=== PATIENT | male | born 1965 | race Caucasian/White ===

== ENCOUNTER 2017-10-25 12:32 | Inpatient (IN) | payer MEDICAID ==
[~2017-10-25] VITALS: Ht 185.4 cm; Wt 66.2 kg
--- NOTE | 2017-10-25 12:35 | NUR ---
Patient BIBA to bed 2 at this time.
[2017-10-25 12:38] VITALS: BP 178/113
[2017-10-25] MEDS ORDERED: IBUPROFEN 800 MG TAB ONE (12:38)
[2017-10-25] MEDS ORDERED: ACETAMINOPHEN EXTRA STRENGTH 500 MG TAB ONE (12:38)
--- NOTE | 2017-10-25 12:38 | NUR ---
Pt pressents to ED with aloc. found on side of road in [facility]. 911 called by jeanie. EMS responded and found Pt with ALOC unable to determin cuase. Pt arival to ED with aloc. Can follow commands only. slurred speach. no c/o pain. Pt febrile and tachycardic. ER MD at bedside for evauluation. Continue to monitor.
[2017-10-25] MEDS ORDERED: ONDANSETRON 4 MG/2 ML VIAL IVP ONE (12:40)
[2017-10-25] MEDS ORDERED: DILTIAZEM 25 MG/5 ML VIAL IVP ONE (12:40)
[2017-10-25] MEDS ORDERED: NACL 0.9% 1,000 ML IV ONE (12:40)
[2017-10-25] MEDS ORDERED: ACETAMINOPHEN 650 MG SUPP RC ONE ×2 (12:40→12:42)
--- NOTE | 2017-10-25 13:13 | NUR ---
patient medicated. continue to monitor.denies discomfort. cxr at bedside
[2017-10-25 13:51] LABS: BASOPHILS # (AUTO) 0.2 K/uL (0.00-0.22); BASOPHILS % (AUTO) 4.7 % (0.0-2.0); EOSINOPHILS # (AUTO) 0.4 K/uL (0-0.4); EOSINOPHILS % (AUTO) 9.1 % (0.0-4.0); HEMATOCRIT 40.3 % (36-52); HEMOGLOBIN 13.4 g/dL (12.0-18.0); LYMPHOCYTES # (AUTO) 0.9 K/uL (2.0-11.5); LYMPHOCYTES % (AUTO) 20.7 % (20.5-51.1); MEAN CORPUSCULAR HEMOGLOBIN 30 pg (27-31); MEAN CORPUSCULAR HGB CONC 33 g/dL (33-37); MONOCYTES # (AUTO) 0.5 K/uL (0.8-1.0); MONOCYTES % (AUTO) 10.9 % (1.7-9.3); NEUTROPHILS # (AUTO) 2.3 K/uL (1.8-7.7); NEUTROPHILS % (AUTO) 54.6 % (42.2-75.2); PLATELET COUNT (AUTO) 129 K/uL (140-450); RED BLOOD CELL COUNT(AUTO) 4.43 MIL/uL (4.20-6.10); RED CELL DISTRIBUTION WIDTH 11.8 % (11.6-13.7); WHITE BLOOD COUNT (AUTO) 4.3 K/uL (4.8-10.8)
[2017-10-25 14:06] LABS: APPEARANCE,URINE CLEAR (CLEAR); BILIRUBIN,URINE NEGATIVE (NEGATIVE); BLOOD, URINE NEGATIVE (NEGATIVE); COLOR,URINE YELLOW (YELLOW); LEUKOCYTE ESTERASE ,URINE NEGATIVE (NEGATIVE); NITRITE, URINE NEGATIVE (NEGATIVE); PH,URINE 6.5 (5.0-9.0); UGLUCOSE NEGATIVE (NEGATIVE)
[2017-10-25 14:08] LABS: ALBUMIN 2.6 g/dL (3.4-5.0); ANION GAP 14.8 (8-16); CARBON DIOXIDE 23.6 mmol/L (21-32); CREATININE 1.2 mg/dL (0.7-1.3); POTASSIUM 3.4 mmol/L (3.5-5.1); TOTAL BILIRUBIN 0.3 mg/dL (0.0-1.0)
[2017-10-25 14:22] LABS: BARBITURATE, URINE NEG. ng/ml (NEG <=200); BENZODIAZEPINE, URINE NEG. ng/mL (NEG <=200); CANNABINOID, URINE POS. ng/mL (NEG <=50); COCAINE, URINE NEG. ng/mL (NEG <=300); OPIATE, URINE NEG. ng/mL (NEG <=2000); PHENCYCLIDINE SCREEN,URINE NEG. ng/mL (NEG <=25)
--- NOTE | 2017-10-25 14:40 | NUR ---
Care transfered to ICU bed #3. VSS upon gurney transport.
--- NOTE | 2017-10-25 14:44 | NUR ---
Critical lab Troponin I recieved. Reported to Dr. Toledo immediately. Verbal order for STAT EKG.
[2017-10-25 14:55] LABS: RBC,URINE 0-5 (RARE) /HPF (0-5); WBC,URINE 0-5 (RARE) /HPF (0-5)
[2017-10-25] MEDS ORDERED: NITROGLYCERIN 0.4 MG TAB SL PRN (15:10)
[2017-10-25] MEDS ORDERED: ACETAMINOPHEN 325 MG TAB PO PRN (15:10)
[2017-10-25] MEDS: DEXT 5% /NACL 0.9% 1,000 ML IV SCH (15:10)
[2017-10-25] MEDS ORDERED: MORPHINE SULFATE 2 MG/ML SYR IVP PRN ×2 (15:10)
[2017-10-25] MEDS ORDERED: LORazepam 1 MG TAB PO PRN (15:10)
[2017-10-25] MEDS ORDERED: ONDANSETRON 4 MG/2 ML VIAL IVP PRN (15:10)
[2017-10-25] MEDS ORDERED: ALUMINUM HYD/MAG/SIMETHICONE 30 ML UDC PO PRN (15:10)
[2017-10-25] MEDS ORDERED: HYDROcodone/APAP 5/325 MG 1 TAB TAB PO PRN (15:10)
[2017-10-25] MEDS ORDERED: ZOLPIDEM 5 MG TAB PO PRN (15:10)
[2017-10-25] MEDS ORDERED: LORazepam 2 MG/ML VIAL IVP PRN (15:10)
--- NOTE | 2017-10-25 16:28 | NUR ---
RECEIVED PATIENT FROM PRESS OFFICERADAMS FOR CONTINUITY OF CARE IN ICU. PATIENT IS LETHARGIC, ORIENTED TO PERSON, PLACE, TIME, AND DATE. HE IS ABLE TO FOLLOW SIMPLE COMMANDS AND MAKES NEEDS KNOWN. HE HAS ALLERGY TO ASPIRIN, REPORTS HAVING SYMPTOMS OF ASTHMA WHEN TAKES ASPIRIN. VS ARE IN STABLE CONDITION AT THIS TIME, HE IS ON NASAL CANNULA 3L, LUNG SOUNDS ARE CLEAR THROUGHOUT. SR ON AUTO [place] DRIVER, CAP REFILL IS LESS THAN 3 SECS. PATIENT HAS TWO PERIPHERAL IV SITES, LEFT FOREARM 20 GAUGE, ASYMPTOMATIC, INTACT, PATENT. AND RIGHT FOREARM 18 GAUGE, ASYMPTOMATIC, INTACT, PATENT. CALL LIGHT WITHIN REACH, NO SIGNS OF DISTRESS NOTED AT THIS TIME. WILL CONTINUE TO MONITOR CLOSELY.
[2017-10-25 18:00] VITALS: BP 141/82
--- NOTE | 2017-10-25 18:09 | NUR ---
CALLED DR.YOGESH EATON FOR CONSULT WITH PATIENT, HE IS AWARE AND STATES THAT HE WILL COME AND SEE PATIENT.
--- NOTE | 2017-10-25 19:03 | NUR ---
ENDORSED CONTINUITY OF CARE AT BEDSIDE TO TOOL COORDINATOR RNARNEL. PATIENT IS RESTING AT THIS TIME, NO SIGNS OF DISTRESS NOTED.
--- NOTE | 2017-10-25 19:20 | NUR ---
RECEIVED BEDSIDE REPORT FROM MORNING SHIFT NURSE. PT DROWSY, LETHARGIC, AROUSABLE TO VOICE, VERBALLY RESPONSIVE, ABLE TO MAKE NEEDS KNOWN. AAO X3. NO FEVER NOTED. SR ON THE MONITOR WITH ABNORMAL T WAVE. ON ROOM AIR WITH 99% O2 SAT. BILATERAL LUNG SOUND CLEAR. HYPOACTIVE ABDOMINAL SOUND FROM ALL 4 QUADS. PERIPHERAL LINE TO RIGHT FORE ARM G 18 AND LEFT FORE ARM G 20, ASYMPTOMATIC, INTACT AND PATENT NOTED. SKIN INTACT. BED IN LOW POSITION. CALL LIGHT WITHIN REACH. WILL CONTINUE TO MONITOR.
--- NOTE | 2017-10-25 19:55 | NUR ---
. Jose AND DR.PALIWAL Munguia AT HERE TO SEE THE PT. WILL FOLLOW THE ORDER.
[2017-10-25 20:00] VITALS: BP 160/115
[2017-10-25] MEDS ORDERED: CARVEDILOL 6.25 MG TAB ONE (20:46)
--- NOTE | 2017-10-25 21:20 | NUR ---
PAGED DR.PALIWAL Garcia BECAUSE PT'S BP 169/116 NOTED AND PT WANTS TO EAT FOOD. RECEIVED CALL BACK, DR ANGELITO Garcia ORDERED CARDIAC DIET AND CLONIDINE 0.1 MG PO PRN Q6HR IF SBP ABOVE 150.
[2017-10-25] MEDS ORDERED: CARVEDILOL 6.25 MG TAB PO SCH (21:30)
[2017-10-25] MEDS ORDERED: POTASSIUM CHLORIDE 10 MEQ TABER PO SCH (21:30)
--- NOTE | 2017-10-25 21:30 | NUR ---
ADMINISTERED SCHEDULED MEDICATIONS ORDERED, TOLERATED WELL. NO ACUTE DISTRESS NOTED. SR ON THE MONITOR. DENIES ANY PAIN AT THIS TIME. CALL LIGHT WITHIN REACH.
[2017-10-25] MEDS: ATORVASTATIN 20 MG TAB PO SCH (21:41)
[2017-10-25 21:43] LABS: CREATINE KINASE MB 4.8 ng/mL (0-3.6)
--- NOTE | 2017-10-25 21:55 | NUR ---
RECEIVED CRITICAL LAB TROPONIN 0.089, NOTIFIED TO DR.PALIWAL Munguia. NO NEW ORDER NOTED.
[2017-10-25 22:00] VITALS: BP 158/109
[2017-10-25] MEDS: LEVOFLOXACIN 500 MG/D5W PREMIX 100 ML IV SCH (22:20)
[2017-10-25] MEDS: cloNIDine 0.1 MG TAB PO PRN (22:21)
[2017-10-25] MEDS ORDERED: COMMUNICATION ORDER MC PRN (22:50)
[2017-10-25] MEDS ORDERED: VANCOMYCIN PER PHARMACY MC PRN (22:50)
--- NOTE | 2017-10-25 22:50 | NUR ---
AT HERE TO SEE THE PT. WILL FOLLOW THE ORDER.
--- NOTE | 2017-10-25 23:45 | NUR ---
PT REPORTED TO NURSE THAT HE IS HAVING HARD OF BREATHING AND HX OF ASTHMA, TAKING MEDICATION AT HOME. NOTIFIED TO DR. EATON AND RECEIVED ORDER. DUONEB 3ML Q4HR PRN IF SOB NOTED AND CARRIED OUT.
[2017-10-25] MEDS: ALBUTEROL SULFATE/IPRATROPIU 3 ML SOL IH PRN (23:59)
[2017-10-26] VITALS (9 sets, daily range): BP systolic 139–159; BP diastolic 88–106
[2017-10-26] MEDS ORDERED: VANCOMYCIN 1,000 MG in DEXTROSE 5% 250 ML IV SCH ×2
[2017-10-26] MEDS ORDERED: VANCOMYCIN 1,000 MG VIAL ONE (00:04)
--- NOTE | 2017-10-26 01:30 | NUR ---
PT IS WATCHING TV AT THIS TIME. NO ACUTE DISTRESS NOTED. DENIES ANY PAIN OR DISCOMFORT. SR WITH ABNORMAL T WAVE ON THE MONITOR. WILL CONTINUE TO MONITOR.
[2017-10-26] MEDS: DEXT 5% /NACL 0.9% 1,000 ML IV SCH ×3 (01:38→18:23)
--- NOTE | 2017-10-26 03:30 | NUR ---
PT IS AWAKE, VERBALLY RESPONSIVE. PT IS GETTING MORE ALERT AND ORIENTED. AAO X4. SR ON THE MONITOR. NO ACUTE DISTRESS NOTED. WILL CONTINUE TO MONITOR.
[2017-10-26] MEDS: cloNIDine 0.1 MG TAB PO PRN ×2 (04:35→14:07)
--- NOTE | 2017-10-26 04:35 | NUR ---
PT'S BP 154/112 NOTED. ADMINISTERED PRN CLONIDINE 0.1MG AT THIS TIME. NO ACUTE RESPIRATORY DISTRESS NOTED. WILL CONTINUE TO MONITOR.
--- NOTE | 2017-10-26 06:20 | NUR ---
PT AWAKE, WATCHING TV, AAO X4. NO ACUTE DISTRESS NOTED. SR ON THE MONITOR. DENIES ANY PAIN OR DISCOMFORT. CONTINUE TO MONITOR.
--- NOTE | 2017-10-26 07:10 | NUR ---
PT TRANSFERRED TO TELE ROOM 111B FROM ICU, BEDSIDE REPORT GIVEN TO DRU DUMONT DURING TRANSFER. NO ACUTE DISTRESS NOTED. Addendum: 10/26/17 at 0723 by Neto Rousseau RN WRONG ENTRY, PROVIDER MISTAKE.
[2017-10-26 07:13] LABS: BASOPHILS # (AUTO) 0.2 K/uL (0.00-0.22); BASOPHILS % (AUTO) 4.5 % (0.0-2.0); EOSINOPHILS # (AUTO) 0.5 K/uL (0-0.4); EOSINOPHILS % (AUTO) 13.1 % (0.0-4.0); HEMATOCRIT 37.9 % (36-52); LYMPHOCYTES # (AUTO) 0.9 K/uL (2.0-11.5); MEAN CORPUSCULAR HEMOGLOBIN 31 pg (27-31); MEAN CORPUSCULAR HGB CONC 34 g/dL (33-37); MEAN CORPUSCULAR VOLUME 89.9 fL (80-94); MONOCYTES # (AUTO) 0.4 K/uL (0.8-1.0); MONOCYTES % (AUTO) 10.7 % (1.7-9.3); NEUTROPHILS # (AUTO) 1.6 K/uL (1.8-7.7); NEUTROPHILS % (AUTO) 45.7 % (42.2-75.2); PLATELET COUNT (AUTO) 106 K/uL (140-450); RED BLOOD CELL COUNT(AUTO) 4.22 MIL/uL (4.20-6.10); RED CELL DISTRIBUTION WIDTH 11.7 % (11.6-13.7); WHITE BLOOD COUNT (AUTO) 3.6 K/uL (4.8-10.8)
--- NOTE | 2017-10-26 07:14 | NUR ---
RECEIVED BEDSIDE REPORT FROM TECHNICIAN CHEMICAL CLEANING RN, ARNEL, FOR CONTINUITY OF CARE. PATIENT IS AWAKE WATCHING TV, AA0X4, ABLE TO FOLLOW COMMANDS AND MAKE NEEDS KNOWN. SKIN IS INTACT, WARM AND DRY, HAS TWO PERIPHERAL IV SITES, LEFT FOREARM AND RIGHT FOREARM, BOTH ASYMPTOMATIC, PATENT, INTACT. PATIENT'S BP IS ELEVATED, DR. EATON AWARE, SR ON MONITOR, CAP REFILL LESS THAN 3 SECS. LUNG SOUNDS CLEAR, ON ROOM AIR. HE IS ON CARDIAC DIET, AWARE THAT BREAKFAST WILL COME AROUND 8, PROVIDED WITH ORAL CARE, HE IS ABLE TO DO ORAL CARE INDEPENDENTLY. CALL LIGHT WITHIN REACH, NO SIGNS OF DISTRESS NOTED AT THIS TIME. WILL MONITOR CLOSELY.
--- NOTE | 2017-10-26 07:15 | NUR ---
REPORT GIVEN TO MORNING NURSE FOR CONTINUITY OF CARE.
--- NOTE | 2017-10-26 07:18 | NUR ---
DR. EATON IN TO SEE AND EXAMINE PATIENT, UPDATED ON PATIENT'S CONDITION, WILL FOLLOW UP ON ANY ORDERS.
[2017-10-26 07:31] LABS: ALBUMIN 2.2 g/dL (3.4-5.0); ANION GAP 11.3 (8-16); CREATININE 1.1 mg/dL (0.7-1.3); MAGNESIUM 1.7 mg/dL (1.8-2.4); PHOSPHORUS 3.1 mg/dL (2.5-4.9); POTASSIUM 4.3 mmol/L (3.5-5.1); TOTAL BILIRUBIN 0.4 mg/dL (0.0-1.0)
--- NOTE | 2017-10-26 07:37 | NUR ---
PROVIDED PATIENT WITH BREAKFAST TRAY, NO SIGNS OF DISTRESS NOTED AT THIS TIME.
--- NOTE | 2017-10-26 07:49 | NUR ---
RECEIVED CRITICAL LAB, TROPONIN 0.083, DID NOT REPORT LAB VALUE IT IS TRENDING DOWN.
[2017-10-26 07:50] LABS: CREATINE KINASE MB 5.2 ng/mL (0-3.6)
[2017-10-26] MEDS: CARVEDILOL 6.25 MG TAB PO SCH (08:05)
[2017-10-26] MEDS: DOCUSATE SODIUM 100 MG GELCAP PO SCH (08:05)
--- NOTE | 2017-10-26 09:18 | NUR ---
PATIENT IS RESTING AT THIS TIME, NO SIGNS OF ACUTE DISTRESS NOTED. VS STABLE AT THIS TIME, CALL LIGHT WITHIN REACH, WILL CONTINUE TO MONITOR.
--- NOTE | 2017-10-26 09:29 | NUR ---
NOTE [facility] REFERRAL RECEIVED ON 10/25/17 WAS FOR REASON: NOT APPLICABLE. PATIENT HAS BEEN SCREENED AND CATEGORIZED MODERATE NUTRITION RISK. PATIENT WILL BE SEEN WITHIN 3-5 DAYS OF ADMISSION. 10/28/17-10/30/[address]
--- NOTE | 2017-10-26 09:37 | NUR ---
SNOWSPORT INSTRUCTOR AT BEDSIDE FOR ECHOCARDIOGRAM, PATIENT PRESENTS NO ACUTE SIGNS OF DISTRESS AT THIS TIME.
--- NOTE | 2017-10-26 10:05 | NUR ---
ECHO DONE NOTIFIED ABOUT PT EF
--- NOTE | 2017-10-26 10:50 | NUR ---
ASKED PATIENT REGARDING HIS HIV MEDICATION CALLED PENG, HE STATES THAT THE MEDICATION IS NOT A CONCERN OF HIS, "IT'S JUST ONE PILL, IF I MISSED A DOSE THEN OH WELL". PATIENT SAYS THE MEDICATION IS IN A MOTEL ROOM THAT HE BOOKED FOR ONE NIGHT. HE REFUSES TO ALLOW US TO SEND SOMEONE TO CERTIFIED SCRUM MASTER MEDICATION FOR HIM.
--- NOTE | 2017-10-26 11:28 | NUR ---
PATIENT IS RESTING COMFORTABLY IN BED, NO SIGNS OF ACUTE DISTRESS NOTED. WILL CONTINUE TO MONITOR CLOSELY.
[2017-10-26] MEDS: VANCOMYCIN 1GM/DEXT 5% PREMIX 200 ML IV SCH (12:00)
--- NOTE | 2017-10-26 12:01 | NUR ---
PROVIDED PATIENT WITH LUNCH TRAY, NO SIGNS OF ACUTE DISTRESS NOTED. CALL LIGHT WITHIN REACH.
--- NOTE | 2017-10-26 14:06 | NUR ---
PATIENT'S BP IS 153/103, ADMINISTERED PRN CLONIDINE FOR SBP ABOVE 150. WILL CONTINUE TO MONITOR PATIENT.
--- NOTE | 2017-10-26 14:41 | NUR ---
IN TO SEE AND EXAMINE PATIENT, UPDATED ON PATIENT'S CONDITION, WILL FOLLOW UP ON ANY ORDERS
--- NOTE | 2017-10-26 14:45 | NUR ---
PATIENT COMPLAINS OF SHORTNESS OF BREATH, ASKING FOR BREATHING TREATMENT. RT NOTIFIED.
[2017-10-26] MEDS: ALBUTEROL SULFATE/IPRATROPIU 3 ML SOL IH PRN (14:50)
--- NOTE | 2017-10-26 14:50 | NUR ---
RT AT BEDSIDE TO PROVIDE BREATHING TREATMENT FOR PATIENT.
--- NOTE | 2017-10-26 16:05 | NUR ---
PATIENT IS RESTING COMFORTABLY IN BED, HOB IS SEMI-FOWLERS IN LOWEST POSSIBLE POSITION, CALL LIGHT WITHIN REACH. NO ACUTE SIGNS OF DISTRESS NOTED. WILL CONTINUE MONITORING
--- NOTE | 2017-10-26 17:57 | NUR ---
PROVIDED PATIENT WITH DINNER TRAY, PATIENT IS EATING AND WATCHING TV. CALL LIGHT WITHIN REACH, NO SIGNS OF ACUTE DISTRESS NOTED.
--- NOTE | 2017-10-26 19:05 | NUR ---
RECEIVED PATIENT LYING IN BED WITH IV CONNECTED TO RIGHT FOREARM. BED IN LOW POSITION. CALL LIGHT WITHIN REACH. DISCUSSED PLAN OF CARE. NO S/S OF ACUTE DISTRESS AT THIS TIME.
--- NOTE | 2017-10-26 19:05 | NUR ---
ENDORSED BEDSIDE REPORT TO MST RN, FOR CONTINUITY OF CARE. PATIENT PRESENTS NO ACUTE DISTRESS AT THIS TIME.
--- NOTE | 2017-10-26 19:20 | NUR ---
ENTERED ROOM TO ASSESS PT. ON ROOM AIR AND STATES NO RESPIRATORY DISTRESS BUT THAT HE WILL NEED A NEBULIZER TX LATER. SPO2 94 ON ROOM AIR, HEART RATE 92 AND RESP RATE 18, B/S: CLEAR BILATERALLY AND IN THE BASES. PT STATES THAT HE WAS DIAGNOSED WITH ASTHMA A CHILD AND USES ALBUTEROL INHALER AT HOME PRN. SET UP IN ROOM IF TX IS CALLED FOR PATIENT IS AWARE OF PRN TX'S.
[2017-10-26] MEDS: ATORVASTATIN 20 MG TAB PO SCH (21:26)
--- NOTE | 2017-10-26 21:30 | NUR ---
SEEN PATIENT ASLEEP IN BED BUT EASILY AROUSABLE. CALL LIGHTS WITHIN REACH. WILL CONTINUE TO MONITOR.
[2017-10-26] MEDS: LEVOFLOXACIN 500 MG/D5W PREMIX 100 ML IV SCH (21:34)
[2017-10-27] VITALS: BP 177/120
[2017-10-27] MEDS: VANCOMYCIN 1GM/DEXT 5% PREMIX 200 ML IV SCH (00:11)
[2017-10-27] MEDS: cloNIDine 0.1 MG TAB PO PRN ×3 (00:21→06:29)
--- NOTE | 2017-10-27 02:47 | NUR ---
PATIENT ASLEEP . BED IN LOW POSITION. CALL LIGHTS WITHIN REACH. WILL CONTINUE TO MONITOR
[2017-10-27 04:00] VITALS: BP 160/113
--- NOTE | 2017-10-27 04:09 | NUR ---
SEEN PATIENT AWAKE IN BED USING CELLPHONE. ALL NEEDS ATTENDED. CALL LIGHTS WITHIN REACH. BED IN LOW POSITION. WILL CONTINUE TO MONITOR.
--- NOTE | 2017-10-27 06:03 | NUR ---
SEEN PATIENT AWAKE IN BED. CALL LIGHT WITHIN REACH. BED IN LOW POSITION.
--- NOTE | 2017-10-27 07:15 | NUR ---
ENDORSED BEDSIDE REPORT TO MST RN, FOR CONTINUITY OF CARE. PATIENT PRESENTS NO ACUTE DISTRESS AT THIS TIME.
--- NOTE | 2017-10-27 07:20 | NUR ---
PATIENT AWAKE AND ALERT. SITTING UP IN BED. PATIENT DENIES ANY SOB. B/S CLEAR. O2 SAT 97% ON ROOM AIR. HEART RATE 85. NO RESPIRATORY DISTRESS NOTED AT THIS TIME. WILL CONTINUE TO MONITOR.
--- NOTE | 2017-10-27 07:25 | NUR ---
RECEIVED BEDSIDE REPORT FROM TELE RN RN. PATIENT IS AAOX4, ABLE TO FOLLOW COMMANDS AND MAKE NEEDS KNOWN. BANDAGE ON RIGHT CHEST, REFUSED TO BE REMOVED OR CHANGED OTHERWISE SKIN IS INTACT. IV NOTED TO THE LEFT FOREARM AND RIGHT AC, BOTH ASYMPTOMATIC, PATENT, INTACT. NO S/S OF ACUTE DISTRESS ON ROOM AIR. CALL LIGHT WITHIN REACH, ON TELE MONITOR, SAFETY PRECAUTIONS MET, WILL MONITOR CLOSELY.
[2017-10-27 08:00] VITALS: BP 155/98
[2017-10-27 08:06] LABS: BASOPHILS # (AUTO) 0.1 K/uL (0.00-0.22); BASOPHILS % (AUTO) 3.6 % (0.0-2.0); EOSINOPHILS # (AUTO) 0.4 K/uL (0-0.4); EOSINOPHILS % (AUTO) 10.3 % (0.0-4.0); HEMOGLOBIN 14.9 g/dL (12.0-18.0); LYMPHOCYTES # (AUTO) 0.9 K/uL (2.0-11.5); LYMPHOCYTES % (AUTO) 24.9 % (20.5-51.1); MEAN CORPUSCULAR HEMOGLOBIN 30 pg (27-31); MEAN CORPUSCULAR HGB CONC 34 g/dL (33-37); MEAN CORPUSCULAR VOLUME 90.1 fL (80-94); MONOCYTES # (AUTO) 0.4 K/uL (0.8-1.0); MONOCYTES % (AUTO) 10.2 % (1.7-9.3); NEUTROPHILS # (AUTO) 1.7 K/uL (1.8-7.7); PLATELET COUNT (AUTO) 114 K/uL (140-450); RED BLOOD CELL COUNT(AUTO) 4.89 MIL/uL (4.20-6.10); RED CELL DISTRIBUTION WIDTH 11.9 % (11.6-13.7); WHITE BLOOD COUNT (AUTO) 3.5 K/uL (4.8-10.8)
[2017-10-27 08:12] LABS: ANION GAP 12.6 (8-16); CARBON DIOXIDE 29.9 mmol/L (21-32); CREATININE 1.2 mg/dL (0.7-1.3); POTASSIUM 4.5 mmol/L (3.5-5.1)
[2017-10-27] MEDS: CARVEDILOL 6.25 MG TAB PO SCH (09:00)
[2017-10-27] MEDS: DOCUSATE SODIUM 100 MG GELCAP PO SCH ×2 (09:00→09:21)
--- NOTE | 2017-10-27 09:30 | NUR ---
DR ANGELITO Munguia HAS SEEN THE PT. MD ADJUSTED BLOOD PRESSURE MEDICATION.
[2017-10-27] MEDS ORDERED: CARVEDILOL 6.25 MG TAB PO SCH (10:30)
[2017-10-27 12:00] VITALS: BP 101/68
--- NOTE | 2017-10-27 12:30 | NUR ---
PT EATING LUNCH, NO S/S OF ACUTE DISTRESS ON RM AIR.
[2017-10-27 16:00] VITALS: BP 106/73
--- NOTE | 2017-10-27 16:00 | NUR ---
PT C/O NOT ENOUGH FOOD FOR LUNCH, PROVIDED AFTERNOON SNACK, PUDDING AND CRACKER. NO OTHER COMPLAINS. PT IN STABLE CONDITION.
[2017-10-27] MEDS ORDERED: CHLORHEXADINE GLUC 2% CLOTH TP SCH ×2 (18:30→21:00)
[2017-10-27] MEDS: ALBUTEROL SULFATE/IPRATROPIU 3 ML SOL IH PRN (19:01)
--- NOTE | 2017-10-27 19:30 | NUR ---
RECEIVED PATIENT LYING IN BED. CALL LIGHT WITHIN REACH. CARE OF PLAN EXPLAINED TO PATIENT. WILL CONTINUE TO MONITOR.
--- NOTE | 2017-10-27 19:30 | NUR ---
REPORT GIVEN TO WELDER GAS AUTOMATIC NURSE. PT IN STABLE CONDITION.
[2017-10-27 20:00] VITALS: BP_SYST 107; BP_SYST 125; BP_DIAS 75; BP_DIAS 88
[2017-10-27] MEDS ORDERED: MUPIROCIN 2% OINT 22 GM TUBE TP SCH (21:00)
[2017-10-27] MEDS: ATORVASTATIN 20 MG TAB PO SCH (21:09)
--- NOTE | 2017-10-27 21:35 | NUR ---
SPOKE TO FISHER LINE XIMENA THAT THERE IS NO BACTROBAN OINTMENT IN THE PATIENT BIN. SHE STATES THAT SHE WILL LOOK FOR THE OINTMENT AND CANT FIND ANY.
--- NOTE | 2017-10-27 23:40 | NUR ---
SEEN PATIENT ASLEEP IN BED EASILY AROUSABLE, BED IN LOW POSITION, CALL LIGHTS WITHIN REACH. WILL CONTINUE TO MONITOR.
[2017-10-28] VITALS: BP 125/88
--- NOTE | 2017-10-28 01:10 | NUR ---
SEEN PATIENT ASLEEP. CALL LIGHTS WITHIN REACH.
[2017-10-28 04:00] VITALS: BP 141/100
--- NOTE | 2017-10-28 05:47 | NUR ---
SEEN PATIENT AWAKE IN BED USING HIS CELLPHONE. BED IN LOW POSITION. CALL LIGHTS WITHIN REACH. ALL NEEDS ATTENDED.
[2017-10-28 07:07] LABS: BASOPHILS # (AUTO) 0.2 K/uL (0.00-0.22); BASOPHILS % (AUTO) 4.7 % (0.0-2.0); EOSINOPHILS # (AUTO) 0.4 K/uL (0-0.4); EOSINOPHILS % (AUTO) 8.7 % (0.0-4.0); HEMATOCRIT 45.9 % (36-52); HEMOGLOBIN 15.1 g/dL (12.0-18.0); LYMPHOCYTES # (AUTO) 1.2 K/uL (2.0-11.5); LYMPHOCYTES % (AUTO) 27.4 % (20.5-51.1); MEAN CORPUSCULAR HEMOGLOBIN 30 pg (27-31); MEAN CORPUSCULAR HGB CONC 33 g/dL (33-37); MEAN CORPUSCULAR VOLUME 91.4 fL (80-94); MONOCYTES # (AUTO) 0.4 K/uL (0.8-1.0); MONOCYTES % (AUTO) 9.6 % (1.7-9.3); NEUTROPHILS # (AUTO) 2.1 K/uL (1.8-7.7); NEUTROPHILS % (AUTO) 49.6 % (42.2-75.2); PLATELET COUNT (AUTO) 141 K/uL (140-450); RED BLOOD CELL COUNT(AUTO) 5.02 MIL/uL (4.20-6.10); RED CELL DISTRIBUTION WIDTH 11.9 % (11.6-13.7); WHITE BLOOD COUNT (AUTO) 4.3 K/uL (4.8-10.8)
--- NOTE | 2017-10-28 07:15 | NUR ---
REPORT GIVEN TO AM SHIFT NURSE AT BEDSIDE FOR CONTINUITY OF CARE. PATIENT IN STABLE CONDITION.
--- NOTE | 2017-10-28 07:16 | NUR ---
RECEIVED REPORT FROM NIGHT RN AT PT BEDSIDE. PATIENT IS ALERT AND ORIENTED. FOLLOWS COMMANDS. LFA IV, RAC IV, PATENT AND INTACT. DENIES CHEST PAIN. NO S/S OF RESPIRATORY DISTRESS NOTED ON ROOM AIR. CALL LIGHT WITHIN REACH. BED IN LOWEST POSITION. NO S/S OF ACUTE DISTRESS NOTED.
[2017-10-28 07:35] LABS: ANION GAP 12.9 (8-16); CARBON DIOXIDE 27.3 mmol/L (21-32); CREATININE 1.3 mg/dL (0.7-1.3); POTASSIUM 4.2 mmol/L (3.5-5.1)
[2017-10-28 08:00] VITALS: BP 174/105
[2017-10-28] MEDS: DOCUSATE SODIUM 100 MG GELCAP PO SCH (08:34)
[2017-10-28] MEDS: cloNIDine 0.1 MG TAB PO PRN ×2 (08:36→10:13)
--- NOTE | 2017-10-28 08:40 | NUR ---
PATIENT HAS ELEVATED BP, MEDICATED ORDERED WITH CATAPRES PO, WILL CONTINUE TO MONITOR.
[2017-10-28] MEDS ORDERED: MUPIROCIN 2% OINT 22 GM TUBE TP SCH (09:00)
[2017-10-28] MEDS ORDERED: CARVEDILOL 12.5 MG TAB PO SCH (09:00)
[2017-10-28] MEDS ORDERED: CHLORHEXADINE GLUC 2% CLOTH TP SCH (09:00)
[2017-10-28] MEDS: ALBUTEROL SULFATE/IPRATROPIU 3 ML SOL IH PRN (11:44)
[2017-10-28 12:00] VITALS: BP 142/90
--- NOTE | 2017-10-28 12:30 | NUR ---
PATIENT SEEN BY DR. EATON AT PT BEDSIDE. NO S/S OF ACUTE DISTRESS NOTED. MADE AWARE OF DISCHARGE PLANNING. IN AGREEMENT.
--- NOTE | 2017-10-28 12:40 | NUR ---
SPOKE WITH CM REGARDING DISCHARGE PLACEMENT. PER CASE MANAGEMENT, THEY HAVE SPOKE WITH THE PATIENT AND PATIENT IS IN AGREEMENT WITH HOSPITAL PROVIDED INFORMATION FOR DISCHARGE WITH BUS PASS.
[2017-10-28] MEDS ORDERED: BACTO TP (13:01)
[2017-10-28] MEDS ORDERED: NITR0.4T1 SL (13:01)
[2017-10-28] MEDS ORDERED: ATOR20TA40 PO (13:01)
[2017-10-28] MEDS ORDERED: CARV12.52 PO (13:01)
[2017-10-28] MEDS ORDERED: MAG SULF 2000 MG/WATER PREMIX 50 ML IV SCH (13:30)
--- NOTE | 2017-10-28 13:55 | NUR ---
CALLED [facility]. WAS TOLD THEY ARE NOT DELEGATED FOR THIS PATIENT. REVIEWS GO TO [facility]. PER CONCHIS, AERIAL ERECTOR, SHE SPOKE WITH [employer] AT . NO CM ASSIGNED YET PHONE [phone] OP 3. FAX REVIEW TO [phone]. FAXED INITIAL REVIEW. Addendum: 10/28/17 at 1358 by Dulce Aguirre CM NAME FROM [facility]. Addendum: 10/28/17 at 1400 by Dulce Aguirre CM REF NUMBER [id number].
--- NOTE | 2017-10-28 15:33 | NUR ---
SPOKE WITH PATIENT REGARDING DISCHARGE PLANNING AND RESOURCES PROVIDED FROM CASE MANAGEMENT. PATIENT BECAME ANGRY AND FRUSTRATED REGARDING HIS LIVING SITUATION BUT REFUSES THE LIVING SITUATIONS PROVIDED TO HIM FROM THE HOSPITAL. PATIENT SIGNED HOMELESS PATIENT WAIVER AND VERBALIZED UNDERSTANDING OF RESOURCES PROVIDED.
--- NOTE | 2017-10-28 15:58 | NUR ---
PATIENT IVS REMOVED, CANULA INTACT. PATIENT IS AWAITING FRIEND TO PICK HIM UP. NO S/S OF ACUTE DISTRESS NOTED.
--- NOTE | 2017-10-28 18:40 | NUR ---
PATIENT DISCHARGE INSTRUCTIONS GIVEN, VERBALIZED UNDERSTANDING, F/U APPOINTMENT TEACHING GIVEN. PATIENT'S RIDE IS HERE. PATIENT REFUSED TO BE WHEELED OUT. PATIENT PROVIDED WITH DISCHARGE FACILITY OPTIONS AND FARE FOR BUS PASS. PATIENT WALKED OUT TO FRONT LOBBY WITH CANE. NO S/S OF ACUTE DISTRESS NOTED.
== END 2017-10-28 18:50 | disposition home or self-care (01) | DRG 720 ==
LOC: MED 12:32 → MIC 15:07 → MTU 10-26 18:45
PROVIDERS: ADMIT Preventive Medicine Preventive Medicine/Occupational Environmental Medicine; ATTEND Preventive Medicine Preventive Medicine/Occupational Environmental Medicine
DX: A41.9 Sepsis, unspecified organism (principal); I21.A1 Myocardial infarction type 2; J96.00 Acute respiratory failure, unspecified whether with hypoxia or hypercapnia; E43 Unspecified severe protein-calorie malnutrition; I42.0 Dilated cardiomyopathy; D69.6 Thrombocytopenia, unspecified; I24.9 Acute ischemic heart disease, unspecified; E83.52 Hypercalcemia; F12.10 Cannabis abuse, uncomplicated; N39.0 Urinary tract infection, site not specified; F15.10 Other stimulant abuse, uncomplicated; I10 Essential (primary) hypertension; R79.89 Other specified abnormal findings of blood chemistry; E87.6 Hypokalemia; F19.239 Other psychoactive substance dependence with withdrawal, unspecified; Z21 Asymptomatic human immunodeficiency virus [HIV] infection status; Z59.0 Homelessness; Z88.6 Allergy status to analgesic agent; Z22.322 Carrier or suspected carrier of Methicillin resistant Staphylococcus aureus
CPT/HCPCS: 36415; 70450; 71045; 80048; 80053; 80202; 80305; 81001; 82550; 82553; 83605; 83735; 84100; 84484; 85025; 85651; 86140; 87040; 87081; 93005; 94640; 96361; 96374; 96375; 99291; J1644; J1956; J2405; J3370; J3475; J3490; J7030; J7042; J7060; J7620; Q0092

== ENCOUNTER 2019-07-14 01:30 | Emergency (ER) | payer MEDICAID ==
[~2019-07-14] VITALS: Ht 182.9 cm; Wt 72.1 kg
[~2019-07-14 01:30] MED LIST: ATOR20TA40 PO; BACTO TP; CARV12.52 PO; NITR0.4T1 SL
[2019-07-14 01:35] VITALS: BP 143/100
--- NOTE | 2019-07-14 01:38 | NUR ---
PT WHEELCHAIRED TO ER BED 8
--- NOTE | 2019-07-14 01:56 | NUR ---
SEEN AND EXAMINED BY SONA WITH ORDERS AND CARRIED OUT.
[2019-07-14] MEDS ORDERED: LORazepam 0.5 MG TAB PO ONE (02:00)
--- NOTE | 2019-07-14 02:09 | NUR ---
MEDICATED PER ERMDS ORDER, TOLERATED WELL.FAST ASLEEP
[2019-07-14 06:30] VITALS: BP 119/81
--- NOTE | 2019-07-14 06:30 | NUR ---
Patient discharged with v/s stable. Written and verbal after care instructions given and explained. Patient verbalized understanding. Wheel Chair Assisted with . All questions addressed prior to discharge. Advised to follow up with PMD.
== END 2019-07-14 06:30 | disposition home or self-care (01) ==
LOC: MED 01:30
DX: G25.2 Other specified forms of tremor (principal); J45.909 Unspecified asthma, uncomplicated; I10 Essential (primary) hypertension; F17.210 Nicotine dependence, cigarettes, uncomplicated; F12.10 Cannabis abuse, uncomplicated; Z88.6 Allergy status to analgesic agent; Z79.899 Other long term (current) drug therapy
CPT/HCPCS: 99283

== ENCOUNTER 2019-08-21 22:25 | Emergency (ER) | payer MEDICAID ==
[~2019-08-21] VITALS: Ht 182.9 cm; Wt 63.5 kg
[2019-08-21 23:03] VITALS: BP 184/119
--- NOTE | 2019-08-22 00:28 | NUR ---
PT WHEEL CHAIR ASSISTED TO BED 1.
--- NOTE | 2019-08-22 00:59 | NUR ---
PT BIB self C/O generalized weakness, and dizziness x1 week. PT states that he cannot stand because of dizziness and weakness. PT AAOx4, speech clear, BUE strong/equal, PERRLA, gait unsteady. PT hypertensive at 184/128, pt states he has not had his lisinopril x 1 week due to him being homeless. PT reports pain at 8/10 in buttocks from prolonged periods of sitting in care, skin is intact. dr mccarthy notified of BP PMH:HIV, HTN, CHF.
[2019-08-22] MEDS ORDERED: cloNIDine 0.1 MG TAB PO ONE (02:15)
--- NOTE | 2019-08-22 02:26 | NUR ---
x-ray at bedside
--- NOTE | 2019-08-22 02:53 | NUR ---
sTARTED 22G IV, OBTAINED LABS AND HANDED THEM TO KELLY
[2019-08-22 03:08] LABS: HEMOGLOBIN 17.4 g/dL (12.0-18.0)
[2019-08-22 03:14] LABS: BASOPHILS # (AUTO) 0.1 K/uL (0.00-0.22); BASOPHILS % (AUTO) 1.3 % (0.0-2.0); EOSINOPHILS # (AUTO) 0.2 K/uL (0-0.4); EOSINOPHILS % (AUTO) 4.6 % (0.0-4.0); HEMATOCRIT 51.6 % (36-52); LYMPHOCYTES # (AUTO) 1.2 K/uL (2.0-11.5); MEAN CORPUSCULAR HEMOGLOBIN 32 pg (27-31); MEAN CORPUSCULAR HGB CONC 34 g/dL (33-37); MONOCYTES # (AUTO) 0.3 K/uL (0.8-1.0); MONOCYTES % (AUTO) 6.1 % (1.7-9.3); NEUTROPHILS # (AUTO) 3.5 K/uL (1.8-7.7); PLATELET COUNT (AUTO) 204 K/uL (140-450); RED BLOOD CELL COUNT(AUTO) 5.38 MIL/uL (4.20-6.10); RED CELL DISTRIBUTION WIDTH 14.2 % (11.6-13.7); WHITE BLOOD COUNT (AUTO) 5.4 K/uL (4.8-10.8)
[2019-08-22 03:20] LABS: ANION GAP 13.2 (8-16); CARBON DIOXIDE 29.3 mmol/L (21-32); CREATININE 1.2 mg/dL (0.7-1.3); POTASSIUM 3.5 mmol/L (3.5-5.1)
[2019-08-22] MEDS ORDERED: METOPROLOL 5 MG/5 ML VIAL IVP ONE (03:25)
[2019-08-22 03:26] LABS: ALBUMIN 3.4 g/dL (3.4-5.0); TOTAL BILIRUBIN 0.7 mg/dL (0.0-1.0)
--- NOTE | 2019-08-22 03:32 | NUR ---
CLONIDINE DECREASED BP SLIGHTLY, PER DR FLORES GIVE 5MG OF LOPRESSOR. PT RESTING IN BED WITH BLANKET OVER HEAD PLAYING ON TABLET.
--- NOTE | 2019-08-22 04:41 | NUR ---
CALLED LAB FOR RESULTS OF TROPONIN AND PT
--- NOTE | 2019-08-22 05:05 | NUR ---
LAB AT BEDSIDE AT THIS TIME
[2019-08-22] MEDS ORDERED: NACL 0.9% 1,000 ML IV ONE (05:35)
[2019-08-22] MEDS ORDERED: MECLIZINE 25 MG TAB PO ONE (05:35)
[2019-08-22 05:50] LABS: PROTHROMBIN TIME 11.5 secs (10.8-13.4)
[2019-08-22 08:00] VITALS: BP 165/99
--- NOTE | 2019-08-22 08:00 | NUR ---
Patient discharged with v/s stable. Written and verbal after care instructions given and explained. Patient alert, oriented and verbalized understanding of instructions. Wheel Chair Assisted with to car. All questions addressed prior to discharge. ID band removed. Patient advised to follow up with PMD. Rx of LOPRESSOR, ANTIVERT, BENADRYL given. Patient educated on indication of medication including possible reaction and side effects. Opportunity to ask questions provided and answered.
== END 2019-08-22 08:00 | disposition home or self-care (01) ==
LOC: MED 22:25
DX: B34.9 Viral infection, unspecified (principal); R51 Headache; J45.909 Unspecified asthma, uncomplicated; I11.0 Hypertensive heart disease with heart failure; Z79.82 Long term (current) use of aspirin; Z79.899 Other long term (current) drug therapy
CPT/HCPCS: 36415; 71045; 80053; 83880; 84484; 85025; 85610; 85730; 93005; 96361; 96374; 99284; J3490; J7030; J8597; Q0092

== ENCOUNTER 2019-09-05 00:52 | Emergency (ER) | payer MEDICAID ==
[~2019-09-05] VITALS: Ht 185.4 cm; Wt 68.0 kg
--- NOTE | 2019-09-05 00:55 | NUR ---
PT BIBA TO ER BED 03
[2019-09-05 01:04] VITALS: BP 167/100
--- NOTE | 2019-09-05 01:04 | NUR ---
53 Y/O MALE C/O GENERALIZED WEAKNESS S/P FALL FROM WHEELCHAIR AT THE [facility]. PATIENT IS WHEELCHAIR BOUND. PATIENT STATES, "I FELL ON MY LEFT SHOULDER." DENIES N/V/D; DENIES HEAD TRAUMA; PERRLA +2. A/OX4; ERMD MADE AWARE OF STATUS. SIDE RAILSX1. WILL CONTINUE TO MONITOR. PMH:CHF; HIV ALLERGIES: ASPIRIN RX:BACTRIM
--- NOTE | 2019-09-05 01:55 | NUR ---
PATIENT IS SITTING IN BED QUIETLY; LISTENING TO MUSIC.
[2019-09-05 02:36] VITALS: BP 150/98
--- NOTE | 2019-09-05 02:36 | NUR ---
Patient does not wish to proceed with medical care recommended by DR. Cai. Patient given information related to possible complications, up to and including , which could occur as a result of leaving hospital at this time. Patient verbalizes understanding of risks involved leaving against medical advice. Patient has signed AMA form.
== END 2019-09-05 02:36 | disposition left against medical advice (07) ==
LOC: MED 00:52
DX: S46.811A Strain of other muscles, fascia and tendons at shoulder and upper arm level, right arm, initial encounter (principal); J45.909 Unspecified asthma, uncomplicated; I11.0 Hypertensive heart disease with heart failure; I50.9 Heart failure, unspecified; Z59.0 Homelessness; Z79.899 Other long term (current) drug therapy; Z88.6 Allergy status to analgesic agent; W07.XXXA Fall from chair, initial encounter; Y93.89 Activity, other specified; Y92.89 Other specified places as the place of occurrence of the external cause; Y99.8 Other external cause status
CPT/HCPCS: 99283